=== PATIENT | female | born 1995 | race Two or more races ===

== ENCOUNTER 2017-05-07 15:38 | Outpatient (CLI) | payer MEDICAID ==
--- NOTE | 2017-05-08 12:38 | XRAY Report ---
THREE VIEW RIGHT KNEE: 05/07/2017 CLINICAL INDICATION: Patellofemoral disorder. FINDINGS: AP, lateral, sunrise views of the right knee demonstrate lateral subluxation of the patella on the sunrise view. There is no evidence of acute fracture. No effusion is present. IMPRESSION: LATERAL SUBLUXATION OF THE PATELLA ON THE SUNRISE VIEW. TD: 05/08/2017 12:38
== END 2017-05-07 15:39 | disposition home or self-care (01) ==
LOC: DI.S 15:38
PROVIDERS: ATTEND Nurse Practitioner Family
DX: S83.011A Lateral subluxation of right patella, initial encounter (principal)

== ENCOUNTER 2017-08-21 13:36 | Outpatient (CLI) | payer MEDICAID ==
[2017-08-21 17:49] LABS: CALCIUM 9.6 mg/dL (8.5-10.3)
[2017-08-21 18:13] LABS: CORTISOL 11.4 ug/dL
[2017-08-21 18:15] LABS: THYROID STIMULATING HORMONE 3.73 uIU/mL (0.34-5.60)
[2017-08-21 18:20] LABS: FREE T4 (FREE THYROXINE) 0.85 ng/dL (0.58-1.64); PROLACTIN 12.57 ng/mL
[2017-08-21 18:42] LABS: FOLLICLE STIMULATING HORMONE 4.4 mIU/mL
[2017-08-21 18:43] LABS: LUTEINIZING HORMONE 9.46 mIU/mL
[2017-08-22 09:26] LABS: ESTRADIOL 254 pg/mL
[2017-08-23 20:12] LABS: ADRENOCORTICOTROP HORM ACTH 29 pg/mL (6-50)
== END 2017-08-21 13:37 | disposition home or self-care (01) ==
LOC: LAB.F 13:36
PROVIDERS: ATTEND Nurse Practitioner Family
DX: E23.0 Hypopituitarism (principal); Z87.820 Personal history of traumatic brain injury
CPT/HCPCS: 36415; 80048; 82024; 82533; 82670; 83001; 83002; 84146; 84439; 84443